=== PATIENT | male | born 1955 | race Caucasian/White ===

== ENCOUNTER 2023-01-19 10:26 | Emergency (ER) | payer MEDICARE ==
[~2023-01-19] VITALS: Ht 177.8 cm; Wt 85.3 kg
[2023-01-19 10:44] VITALS: BP 153/99
[2023-01-19] MEDS ORDERED: CYCL10 PO ×3 (12:06→12:46)
[2023-01-19] MEDS ORDERED: LIDO700A20 TOP ×3 (12:06→12:46)
== END 2023-01-19 12:15 | disposition home or self-care (01) ==
LOC: ER 10:26
DX: G89.29 Other chronic pain (principal); M54.40 Lumbago with sciatica, unspecified side
CPT/HCPCS: A9270; J1885

== ENCOUNTER 2023-05-24 17:32 | Inpatient (IN) | payer MEDICARE ==
[~2023-05-24] VITALS: Ht 177.8 cm; Wt 78.0 kg
[~2023-05-24 17:32] MED LIST: CYCL10 PO; LIDO700A20 TOP
[2023-05-24 19:02] LABS: BASOPHILS ABSOLUTE AUTO 0.06 K/mm3 (0.00-0.23); BASOPHILS PERCENT AUTO 0 % (0-2); EOSINOPHILS ABSOLUTE AUTO 0.02 K/mm3 (0.00-0.68); EOSINOPHILS PERCENT AUTO 0 % (0-6); Hematocrit 39.2 % (37.0-53.0); Hemoglobin 12.9 g/dL (13.5-17.5); IMMATURE GRAN ABSOLUTE AUTO 0.07 K/mm3 (0.00-0.10); IMMATURE GRAN PERCENT AUTO 0 % (0-1); LYMPHOCYTES ABSOLUTE AUTO 2.23 K/mm3 (0.84-5.20); LYMPHOCYTES PERCENT AUTO 13 % (21-46); MONOCYTES ABSOLUTE AUTO 1.19 K/mm3 (0.16-1.47); MONOCYTES PERCENT AUTO 7 % (4-13); Mean Corpuscular HGB 28.5 pg (26.0-34.0); Mean Corpuscular HGB Conc 32.9 g/dL (31.5-36.5); Mean Corpuscular Volume 87 fL (80-100); Mean Platelet Volume 9.8 fL (9.1-12.4); NEUTROPHILS ABSOLUTE AUTO 13.25 K/mm3 (1.96-9.15); NEUTROPHILS PERCENT AUTO 79 % (41-73); Platelet Count 354 K/mm3 (150-400); RDW Standard Deviation 40.7 fL (35.1-46.3); Red Blood Cell Count 4.52 M/mm3 (4.30-5.90); White Blood Cell Count 16.82 K/mm3 (4.00-11.30)
[2023-05-24 19:42] LABS: Albumin, Blood 3.1 g/dL (3.4-5.0); Albumin/Globulin Ratio 0.7 (0.8-1.8); Bilirubin, Total 0.6 mg/dL (0.1-1.0); Bun/Creatinine Ratio 25.5 (12.0-20.0); Calcium, Blood 9.1 mg/dL (8.5-10.1); Creatinine, Blood 0.67 mg/dL (0.60-1.20); Globulin, Blood 4.6 g/dL (2.2-4.0); Potassium, Blood 4.2 mmol/L (3.5-5.5); Total Protein, Blood 7.7 g/dL (6.4-8.2)
[2023-05-24 19:45] LABS: Source, Urine Clean Catch
[2023-05-24 19:49] LABS: Appearance, Urine Cloudy (Clear); Bilirubin, Urine Neg (Neg); Blood, Urine 3+ (Neg); Color, Urine Yellow (P-Yellow); Glucose Qualitative, Urine 4+ (Neg); Ketones, Urine 3+ (Neg); Leukocyte Esterase, Urine 3+ (Neg); Nitrite, Urine Pos (Neg); Protein, Urine 2+ (Neg); Specific Gravity, Urine 1.015 (1.003-1.022); Urobilinogen, Urine NORM (Normal)
[2023-05-24 20:07] LABS: Bacteria Many /hpf; Squamous Epithelial Cells Not Seen /hpf (Few); White Blood Cells, Urine TNTC /hpf (0-5)
[2023-05-24] MEDS ORDERED: METFORMIN HCL500 M2 PO (22:39)
[2023-05-24] MEDS ORDERED: MELO7.5 PO (22:40)
[2023-05-24] MEDS ORDERED: PREG300 PO (22:40)
[2023-05-24 23:00] VITALS: BP 120/75
[2023-05-25 02:45] VITALS: BP 130/82
[2023-05-25 04:59] LABS: BASOPHILS ABSOLUTE AUTO 0.06 K/mm3 (0.00-0.23); BASOPHILS PERCENT AUTO 0 % (0-2); EOSINOPHILS ABSOLUTE AUTO 0.04 K/mm3 (0.00-0.68); EOSINOPHILS PERCENT AUTO 0 % (0-6); Hematocrit 34.6 % (37.0-53.0); Hemoglobin 11.3 g/dL (13.5-17.5); IMMATURE GRAN ABSOLUTE AUTO 0.06 K/mm3 (0.00-0.10); IMMATURE GRAN PERCENT AUTO 0 % (0-1); LYMPHOCYTES ABSOLUTE AUTO 1.98 K/mm3 (0.84-5.20); LYMPHOCYTES PERCENT AUTO 13 % (21-46); MONOCYTES ABSOLUTE AUTO 1.41 K/mm3 (0.16-1.47); MONOCYTES PERCENT AUTO 9 % (4-13); Mean Corpuscular HGB 28.5 pg (26.0-34.0); Mean Corpuscular HGB Conc 32.7 g/dL (31.5-36.5); Mean Corpuscular Volume 87 fL (80-100); Mean Platelet Volume 9.5 fL (9.1-12.4); NEUTROPHILS ABSOLUTE AUTO 12.13 K/mm3 (1.96-9.15); NEUTROPHILS PERCENT AUTO 77 % (41-73); Platelet Count 273 K/mm3 (150-400); RDW Standard Deviation 40.7 fL (35.1-46.3); Red Blood Cell Count 3.96 M/mm3 (4.30-5.90); White Blood Cell Count 15.68 K/mm3 (4.00-11.30)
[2023-05-25 05:46] LABS: Albumin, Blood 2.6 g/dL (3.4-5.0); Albumin/Globulin Ratio 0.6 (0.8-1.8); Bilirubin, Total 0.6 mg/dL (0.1-1.0); Bun/Creatinine Ratio 28.7 (12.0-20.0); Calcium, Blood 7.8 mg/dL (8.5-10.1); Creatinine, Blood 0.66 mg/dL (0.60-1.20); Globulin, Blood 4.1 g/dL (2.2-4.0); Total Protein, Blood 6.7 g/dL (6.4-8.2)
[2023-05-25 07:21] VITALS: BP 123/71
--- NOTE | 2023-05-25 07:21 | NUR ---
SHIFT SUMMERY/ADMISSION NOTE PATIENT ARRIVED TO UNIT FROM ED AT 23:00. IS A/Ox4, DENIES PAIN NOR DISCOMFORT. STATES NAUSEA HAS RESOLVED. INDEPENDENT IN ROOM. NO ACUTE CHANGES NOTED OVERNIGHT. BED LOCKED, CALL LIGHT WITHIN REACH.
[2023-05-25 15:36] VITALS: BP 131/73
--- NOTE | 2023-05-25 16:42 | NUR ---
DAYSHIFT SUMMARY Patient alert & oriented x4, denies discomfort or pain. patient reports feeling much better today. CBGs at breakfast/264 & lunch/303, low SSI & lantus ordered. IV Rocephin administred this afternoon. VVS. Will continue plan of care.
[2023-05-25 19:57] VITALS: BP 123/73
--- NOTE | 2023-05-26 04:03 | NUR ---
SHIFT SUMMARY PATIENT A/Ox4, DENIES PAIN NOR DISCOMFORT. NO C/O NAUSEA. VSS. INDEPENDENT IN ROOM. NO ACUTE CHANGES NOTED OVERNIGHT. WILL CONTINUE PLAN OF CARE. BED LOCKED, CALL LIGHT WITHIN REACH.
[2023-05-26 04:27] VITALS: BP 122/71
[2023-05-26 04:53] LABS: Hematocrit 36.7 % (37.0-53.0); Hemoglobin 11.7 g/dL (13.5-17.5); Mean Corpuscular HGB 28.4 pg (26.0-34.0); Mean Corpuscular HGB Conc 31.9 g/dL (31.5-36.5); Mean Corpuscular Volume 89 fL (80-100); Mean Platelet Volume 9.5 fL (9.1-12.4); Platelet Count 271 K/mm3 (150-400); RDW Coefficient Variation 13.1 % (11.7-14.2); RDW Standard Deviation 42.5 fL (35.1-46.3); Red Blood Cell Count 4.12 M/mm3 (4.30-5.90)
[2023-05-26 05:43] LABS: Albumin, Blood 2.6 g/dL (3.4-5.0); Anion Gap 4 mmol/L (6-16); Blood Urea Nitrogen 16 mg/dL (8-24); Bun/Creatinine Ratio 20.7 (12.0-20.0); CO2, Blood 30 mmol/L (21-32); Calcium, Blood 8.9 mg/dL (8.5-10.1); Chloride, Blood 103 mmol/L (98-108); Creatinine, Blood 0.77 mg/dL (0.60-1.20); Glomerular Filtration Rate 97 (60-); Glucose, Blood 223 mg/dL (70-99); Phosphorus, Blood 2.4 mg/dL (2.5-4.9); Potassium, Blood 4.2 mmol/L (3.5-5.5); Sodium, Blood 137 mmol/L (136-145)
[2023-05-26 07:21] VITALS: BP 107/62
[2023-05-26] MEDS ORDERED: CEFD300 PO (12:35)
--- NOTE | 2023-05-26 13:06 | NUR ---
DISCHARGE: PT D/C @1300 INDEPENDENTLY. ANTIBIOTIC FAXED TO [facility]. IV REMOVED FROM [facility] W/O COMPLICATIONS. TELE CALLED AND SENT BACK. NO C/O PAIN, DYSURIA, OR FLANK PAIN THIS SHIFT. PT AWARE TO MAKE FOLLOW-UP APPOINTMENT WITH PCP REGARDING CONSULTATION. NO QUESTIONS AT TIME OF DISCHARGE.
[2023-05-29 23:11] LABS: HEMOGLOBIN A1C 11.4 % (4.8-5.6)
== END 2023-05-26 13:00 | disposition home or self-care (01) | DRG 872 ==
LOC: ER 17:32 → MEDS 17:33
PROVIDERS: Internal Medicine; Student in an Organized Health Care Education/Training Program; ADMIT Internal Medicine
DX: A41.9 Sepsis, unspecified organism (principal); N39.0 Urinary tract infection, site not specified; N40.0 Benign prostatic hyperplasia without lower urinary tract symptoms; M54.9 Dorsalgia, unspecified; G89.29 Other chronic pain; E11.65 Type 2 diabetes mellitus with hyperglycemia; B96.20 Unspecified Escherichia coli [E. coli] as the cause of diseases classified elsewhere; Z23 Encounter for immunization; Z79.899 Other long term (current) drug therapy; Z98.890 Other specified postprocedural states
CPT/HCPCS: 36415; 71045; 76770; 80053; 80069; 81001; 82947; 83036; 83605; 83880; 85025; 85027; 87040; 87077; 87086; 87186; 96361; 96365; 96372; 96375; 99285-25; A9270; G0008; G0378; J0696; J1650; J1815; J1885; J2405; J7030; Q2036

== ENCOUNTER → 2023-06-11 | Outpatient (CLI) | payer MEDICARE ==
[~2023-06-11] MED LIST changes: +CEFD300 PO; +MELO7.5 PO; +METFORMIN HCL500 M2 PO; +PREG300 PO
== END | disposition home or self-care (01) ==
LOC: LAB SHORT 19:21 → LAB 19:21
DX: N39.0 Urinary tract infection, site not specified (principal)
CPT/HCPCS: 87077; 87086; 87186

== ENCOUNTER → 2023-07-02 | Outpatient (CLI) | payer MEDICARE ==
[~2023-07-02] MED LIST changes: +Acetaminophen650 M1 PO; +BASAGLAR K100 UNIT/3 SC; +BENADRYL25 MG PO; +Benadryl Itch28.3 G1 TOP; +CIPR500 PO; +LORA10ER PO; +METF500 PO; +ONDA4ODT MM; +PREG150 PO; +RYBELSUS3 MG PO; +TAMS.4ER PO; +VISBIOME 112.51 EACH PO
== END | disposition home or self-care (01) ==
LOC: LAB 14:29 → LAB SHORT 14:29
DX: N39.0 Urinary tract infection, site not specified (principal)
CPT/HCPCS: 87077; 87086; 87186

== ENCOUNTER → 2023-07-02 | Outpatient (CLI) | payer MEDICARE ==
[2023-07-02 16:11] LABS: PSA, %Free 14.2 %
== END | disposition home or self-care (01) ==
LOC: LAB SHORT 14:31 → LAB 14:31
PROVIDERS: Nurse Practitioner Family
DX: R35.1 Nocturia (principal)
CPT/HCPCS: 84153; 84154

== ENCOUNTER 2023-07-09 16:17 | Inpatient (IN) | payer MEDICARE ==
[~2023-07-09] VITALS: Ht 177.8 cm; Wt 83.8 kg
[~2023-07-09 16:17] MED LIST changes: -Acetaminophen650 M1 PO; -BASAGLAR K100 UNIT/3 SC; -BENADRYL25 MG PO; -Benadryl Itch28.3 G1 TOP; -CIPR500 PO; -LORA10ER PO; -METF500 PO; -ONDA4ODT MM; -PREG150 PO; -RYBELSUS3 MG PO; -TAMS.4ER PO; -VISBIOME 112.51 EACH PO
[2023-07-09 17:15] LABS: BASOPHILS ABSOLUTE AUTO 0.04 K/mm3 (0.00-0.23); BASOPHILS PERCENT AUTO 0 % (0-2); EOSINOPHILS ABSOLUTE AUTO 0.28 K/mm3 (0.00-0.68); EOSINOPHILS PERCENT AUTO 1 % (0-6); Hematocrit 38.2 % (37.0-53.0); Hemoglobin 12.7 g/dL (13.5-17.5); IMMATURE GRAN ABSOLUTE AUTO 0.14 K/mm3 (0.00-0.10); IMMATURE GRAN PERCENT AUTO 1 % (0-1); LYMPHOCYTES ABSOLUTE AUTO 1.09 K/mm3 (0.84-5.20); LYMPHOCYTES PERCENT AUTO 6 % (21-46); MONOCYTES ABSOLUTE AUTO 0.75 K/mm3 (0.16-1.47); MONOCYTES PERCENT AUTO 4 % (4-13); Mean Corpuscular HGB 28.1 pg (26.0-34.0); Mean Corpuscular HGB Conc 33.2 g/dL (31.5-36.5); Mean Corpuscular Volume 85 fL (80-100); Mean Platelet Volume 9.5 fL (9.1-12.4); NEUTROPHILS ABSOLUTE AUTO 17.41 K/mm3 (1.96-9.15); NEUTROPHILS PERCENT AUTO 88 % (41-73); Platelet Count 300 K/mm3 (150-400); RDW Coefficient Variation 13.6 % (11.7-14.2); RDW Standard Deviation 42.2 fL (35.1-46.3); Red Blood Cell Count 4.52 M/mm3 (4.30-5.90); White Blood Cell Count 19.71 K/mm3 (4.00-11.30)
[2023-07-09 17:44] LABS: Albumin, Blood 3.1 g/dL (3.4-5.0); Albumin/Globulin Ratio 0.7 (0.8-1.8); Bilirubin, Total 0.6 mg/dL (0.1-1.0); Bun/Creatinine Ratio 19.1 (12.0-20.0); Calcium, Blood 9.3 mg/dL (8.5-10.1); Creatinine, Blood 0.94 mg/dL (0.60-1.20); Globulin, Blood 4.6 g/dL (2.2-4.0); Potassium, Blood 4.7 mmol/L (3.5-5.5); Total Protein, Blood 7.7 g/dL (6.4-8.2)
[2023-07-09 23:43] LABS: Source, Urine Clean Catch
[2023-07-10 00:17] LABS: Bilirubin, Urine Neg (Neg); Blood, Urine Neg (Neg); Glucose Qualitative, Urine 2+ (Neg); Ketones, Urine 2+ (Neg); Leukocyte Esterase, Urine 1+ (Neg); Nitrite, Urine Neg (Neg); Protein, Urine 1+ (Neg); Urobilinogen, Urine NORM (Normal)
[2023-07-10 00:22] LABS: Appearance, Urine Hazy (Clear); Color, Urine Yellow (P-Yellow)
[2023-07-10 00:24] LABS: Bacteria Mod /hpf; Hyaline Casts 0-2 /lpf (0-2); Red Blood Cells, Urine 0-2 /hpf (0-2); Squamous Epithelial Cells Not Seen /hpf (Few)
[2023-07-10 05:30] LABS: BASOPHILS ABSOLUTE AUTO 0.04 K/mm3 (0.00-0.23); BASOPHILS PERCENT AUTO 0 % (0-2); EOSINOPHILS ABSOLUTE AUTO 0.48 K/mm3 (0.00-0.68); EOSINOPHILS PERCENT AUTO 3 % (0-6); Hematocrit 37.6 % (37.0-53.0); Hemoglobin 12.3 g/dL (13.5-17.5); IMMATURE GRAN ABSOLUTE AUTO 0.12 K/mm3 (0.00-0.10); IMMATURE GRAN PERCENT AUTO 1 % (0-1); LYMPHOCYTES ABSOLUTE AUTO 1.81 K/mm3 (0.84-5.20); LYMPHOCYTES PERCENT AUTO 11 % (21-46); MONOCYTES ABSOLUTE AUTO 0.67 K/mm3 (0.16-1.47); MONOCYTES PERCENT AUTO 4 % (4-13); Mean Corpuscular HGB Conc 32.7 g/dL (31.5-36.5); Mean Corpuscular Volume 86 fL (80-100); Mean Platelet Volume 9.8 fL (9.1-12.4); NEUTROPHILS ABSOLUTE AUTO 13.11 K/mm3 (1.96-9.15); NEUTROPHILS PERCENT AUTO 81 % (41-73); Platelet Count 272 K/mm3 (150-400); RDW Coefficient Variation 13.7 % (11.7-14.2); RDW Standard Deviation 42.8 fL (35.1-46.3); White Blood Cell Count 16.23 K/mm3 (4.00-11.30)
[2023-07-10 05:50] LABS: Albumin, Blood 2.8 g/dL (3.4-5.0); Albumin/Globulin Ratio 0.7 (0.8-1.8); Bilirubin, Total 0.4 mg/dL (0.1-1.0); Bun/Creatinine Ratio 17.1 (12.0-20.0); Calcium, Blood 8.7 mg/dL (8.5-10.1); Creatinine, Blood 1.05 mg/dL (0.60-1.20); Globulin, Blood 4.1 g/dL (2.2-4.0); Potassium, Blood 4.9 mmol/L (3.5-5.5); Total Protein, Blood 6.9 g/dL (6.4-8.2)
[2023-07-10] MEDS ORDERED: METF500 PO (10:48)
[2023-07-10] MEDS ORDERED: PREG150 PO (10:49)
[2023-07-10] MEDS ORDERED: RYBELSUS3 MG PO (10:50)
[2023-07-10] MEDS ORDERED: BASAGLAR K100 UNIT/3 SC (10:52)
[2023-07-10] MEDS ORDERED: TAMS.4ER PO (10:53)
[2023-07-10 11:11] VITALS: BP 115/65
--- NOTE | 2023-07-10 11:34 | NUR ---
ASSUMPTION OF CARE REPORT RECEIVED FROM ER NURSE. PT TO ICU AT 1037. PT TRANSFERRED TO ICU BED VIA SBA. ALERT AND ORIENTED X 4, FOLLOWS COMMANDS AND IS ABLE TO MAKE NEEDS KNOWN. HR 90-100'S SINUS, MAP >65. PT ON RA, OXYGEN SATURATION >95%. PT DENIES CP OR SOB. PT USES URINAL TO VOID. PT STATES HE HAS URGENCY AND REQUENCY BUT DENIES BURNING DURING URINATION. ABDOMEN SOFT NONTENDER, BOWEL TONES ACTIVE IN ALL FOUR DQUADRANTS. PIV TO LAC SL. BED IN LOWEST POSITION, CALL LIGHT WITHIN REACH. CARE CONTINUES.
--- NOTE | 2023-07-10 11:36 | NUR ---
PT UPDATE REPORT GIVEN TO ILEANA CHAVES.
[2023-07-10 16:58] VITALS: BP 111/85
--- NOTE | 2023-07-10 17:07 | NUR ---
Assumed care of patient at approx 1200. No acute chagnes t/o shift. Pt rash t/o body, medicated X2. Vss. No other acute changes noted. Report given to RN assuming care of patient, pt left room and approx 1705 via wheelchair.
--- NOTE | 2023-07-10 18:19 | NUR ---
PT ARRIVED TO THE UNIT. CALL LIGHT WITHIN REACH. NO NEEDS AT THIS TIME
[2023-07-10 19:24] VITALS: BP 123/73
[2023-07-11 02:49] VITALS: BP 110/74
[2023-07-11 05:18] LABS: BASOPHILS ABSOLUTE AUTO 0.03 K/mm3 (0.00-0.23); BASOPHILS PERCENT AUTO 0 % (0-2); EOSINOPHILS ABSOLUTE AUTO 0.61 K/mm3 (0.00-0.68); EOSINOPHILS PERCENT AUTO 7 % (0-6); Hematocrit 35.3 % (37.0-53.0); Hemoglobin 11.6 g/dL (13.5-17.5); IMMATURE GRAN ABSOLUTE AUTO 0.03 K/mm3 (0.00-0.10); IMMATURE GRAN PERCENT AUTO 0 % (0-1); LYMPHOCYTES ABSOLUTE AUTO 2.85 K/mm3 (0.84-5.20); LYMPHOCYTES PERCENT AUTO 31 % (21-46); MONOCYTES ABSOLUTE AUTO 0.79 K/mm3 (0.16-1.47); MONOCYTES PERCENT AUTO 9 % (4-13); Mean Corpuscular HGB 27.8 pg (26.0-34.0); Mean Corpuscular HGB Conc 32.9 g/dL (31.5-36.5); Mean Corpuscular Volume 84 fL (80-100); Mean Platelet Volume 9.7 fL (9.1-12.4); NEUTROPHILS ABSOLUTE AUTO 4.91 K/mm3 (1.96-9.15); NEUTROPHILS PERCENT AUTO 53 % (41-73); Platelet Count 269 K/mm3 (150-400); RDW Coefficient Variation 13.7 % (11.7-14.2); RDW Standard Deviation 42.5 fL (35.1-46.3); Red Blood Cell Count 4.18 M/mm3 (4.30-5.90); White Blood Cell Count 9.22 K/mm3 (4.00-11.30)
--- NOTE | 2023-07-11 05:25 | NUR ---
REPORT RECEIVED VERIFIED PT A/O VSS HAS NO C/O PAIN ONLY UNCOMFORTABLE BECAUSE OF HIVES ALL OVER BODY. PT INDEPENDANT IN RM AND WILL CALL IF NEEDING ASSISTENCE. PT GIVEN CREAM TO PUT ALL OVER BODY FOR ITCHING, NO OPEN WOUNDS JUST RED PATCHES THROUGHOUT BODY.
[2023-07-11 07:59] VITALS: BP 113/75
[2023-07-11] MEDS ORDERED: Acetaminophen650 M1 PO (11:54)
[2023-07-11] MEDS ORDERED: BENADRYL25 MG PO (11:55)
[2023-07-11] MEDS ORDERED: CIPR500 PO (11:55)
[2023-07-11] MEDS ORDERED: Benadryl Itch28.3 G1 TOP (11:56)
[2023-07-11] MEDS ORDERED: ONDA4ODT MM (11:57)
[2023-07-11] MEDS ORDERED: LORA10ER PO (11:57)
[2023-07-11] MEDS ORDERED: VISBIOME 112.51 EACH PO (11:58)
--- NOTE | 2023-07-11 13:17 | NUR ---
DISCHARGE NOTE PT DISCHARGED TO HOME, TAKEN TO HIS OWN VEHICLE BY WHEELCHAIR. IV REMOVED. DISHARGE INFORMATION AND EDUCATION PROVIDED. MEDICATIONS FAXED TO THE PHARMACY OF HIS CHOICE.
== END 2023-07-11 12:58 | disposition home or self-care (01) | DRG 872 ==
LOC: ER 16:17 → MEDS 07-10 01:00 → ERHOLD 07-10 01:00 → ICUE 07-10 10:28 → MEDS 07-10 17:07 → ENPENDDIS 07-11 10:39 → MEDS 07-11 12:58
PROVIDERS: Family Medicine; Physician Assistant; ADMIT Student in an Organized Health Care Education/Training Program
DX: A41.51 Sepsis due to Escherichia coli [E. coli] (principal); E87.20 Acidosis, unspecified; N39.0 Urinary tract infection, site not specified; R65.20 Severe sepsis without septic shock; N41.1 Chronic prostatitis; M54.9 Dorsalgia, unspecified; N40.0 Benign prostatic hyperplasia without lower urinary tract symptoms; T37.0X5A Adverse effect of sulfonamides, initial encounter; N32.0 Bladder-neck obstruction; G89.29 Other chronic pain; E11.9 Type 2 diabetes mellitus without complications; L27.0 Generalized skin eruption due to drugs and medicaments taken internally; Z88.8 Allergy status to other drugs, medicaments and biological substances; Z79.84 Long term (current) use of oral hypoglycemic drugs; Z79.899 Other long term (current) drug therapy; Z98.890 Other specified postprocedural states
CPT/HCPCS: 36415; 80053; 81001; 82947; 83605; 85025; 87040; 87086; 96361; 96365; 96366; 96375; 99284-25; A9270; J0696; J1650; J1815; J7030